=== PATIENT | male | born 1945 | race Caucasian/White ===

== ENCOUNTER 2023-01-11 10:53 | Day surgery (SDC) | payer OTHER, SELFPAY ==
[2023-01-02 12:19] VITALS: BMI 29.8
[2023-01-11] VITALS (7 sets, daily range): BP systolic 125–159; BP diastolic 73–96; PULSE 68–89; RESP 10–22; TEMP 36.1–36.8; O2SAT 90–98; BMI 29.8
[2023-01-11] MEDS: LACTATED RINGERS 1,000 ML 42 ML IV ×2 (11:37→18:22)
[2023-01-11 11:47] LABS: Hematocrit 43.5 % (41-53); Hemoglobin 15.5 g/dL (13.5-17.5); Mean Corpuscular HGB Conc 35.5 % (30-36); Mean Corpuscular Hemoglobin 33.5 PG (26-34); Mean Corpuscular Volume 94.3 fL (80-100); Platelet Count 207 X10^3/uL (150-400); Red Blood Cell Count 4.62 X10^6/uL (4.5-5.9); Red Cell Distribution Width 12.8 % (11.6-14.8); White Blood Cell Count 6.8 X10^3/uL (4.5-11.0)
[2023-01-11 11:58] LABS: BUN Creatinine Ratio 13.9 (6-22); Blood Urea Nitrogen 10 mg/dL (9-20); Carbon Dioxide 27 mmol/L (22-32); Chloride 96 mmol/L (98-107); Estimated Glomerular Filt Rate > 60 mL/min (>60); Glucose 97 mg/dL (80-110); HEMOLYSIS < 15 (0-50); Potassium 3.8 mmol/L (3.4-5.1); Sodium 133 mmol/L (137-145)
--- NOTE | 2023-01-11 12:44 | PM.PREOP ---
Pre-operative Note Interval Note History & Physical reviewed/Exam performed by Physician: Yes Changes to H&P: No
--- NOTE | 2023-01-11 14:05 | SUR.PREOP ---
Patient becoming agitated that he is still waiting to go to surgery. Apologized and explained reason for delay to patient. Called patient's , Priscilla, to notify that patient was delayed due to other circumstances. V/U. Patient comfortable and understanding of reason for delay.
[2023-01-11] MEDS: fentaNYL 100 MCG/2 ML INJ 50 MCG IV ×2 (15:02→15:12)
[2023-01-11] MEDS: MIDAZOLAM 2 MG/2 ML VIAL IV (15:03)
--- NOTE | 2023-01-11 15:24 | SUR.PREOP ---
Block start time [1500] . Monitoring initiated and maintained throughout procedure. Oxygen and medications given per anesthesiologist instructions. Patient remained stable throughout procedure, no adverse reactions noted. Block end time [1515].
[2023-01-11] MEDS: CEFAZOLIN 2 GM/100 ML PREMIX 100 ML IV (15:30)
--- NOTE | 2023-01-11 16:16 | SUR.OPER ---
Supine on padded OR bed, head on pillow, arms secured on padded arm boards at <90 degrees abduction, legs uncrossed, safety belt at thigh. Right leg in control of surgeon. Left leg taped down. Bump placed under patient's right hip and under right leg.
--- NOTE | 2023-01-11 16:18 | P.PCN_ITS ---
Peripheral Nerve Block Note Pre-Procedure Reason for block: Attending surgeon request/order for post-op pain management Pre-procedure checklist: Patient examined and chart reviewed, Risks, benefits, alternatives of block discussed, questions answered, Verification of anti- coagulation status, Site confirmed, Timeout performed and Standard ASA monitors applied Consent obtained from: Patient Procedure Date of procedure: 01/11/23 Start Time: 15:05 End Time: 15:15 Performed by: Carmen Curry Sedation - enter dose in comment field: IV Midazolam (mg) (2mg) and IV Fentanyl (mcg) (100 mcg) Location: Pre-Op Position: Lateral (Left) Laterality: Right Sterile Technique: Sterile barrier maintained, Sterile gloves, Mask, Sterile drapes, U/S probe cover and Chloraprep Skin Wheal: Lidocaine 1% mL: 1.5 Gauge: 25 Equipment Single injection - Needle brand, gauge, length: [employer] SONOPLEX STIM NEEDLE 21G X 100mm Medications Medications - enter concentration (%) & mL in comment field: Ropivacaine (0.5%. 20 ml total) Incremental aspiration prior to injection: Yes (aspirated every 5 ml) Ultrasound Reason for Ultrasound: U/S guidance used for needle placement and U/S used to visualize spread of anesthetic Image printed/saved/archived: Yes Limited exam reveals no abnormal findings: Yes Other: aspiration every 5 ml injected and easy injection throughout. Vital signs VS: - 01/11/23 11:24 Temperature 98.2 F Pulse Rate 89 Respiratory Rate 16 Blood Pressure 159/94 H Pulse Oximetry 98 Oxygen Delivery Method Room Air Oxygen Delivery Method Room Air Events Complications/Explanation for PNB under General anesthetic: Patient tolerated the procedure without complaints and no paresthesia noted. Postoperatively patient with no pain.
[2023-01-11] MEDS: BUPIVACAINE 0.5% (PF) 30 ML, EPINEPHrine 0.15 MG INJ (16:45)
--- NOTE | 2023-01-11 18:53 | DI.RAD.S_ITS ---
PROCEDURE: XR FOOT RT MIN 3V INDICATIONS: FOOT REPAIR RIGHT TECHNIQUE: 1 views of the foot were acquired. COMPARISON: None. FINDINGS: Fluoroscopic guidance utilized for a 5th metatarsal osteotomy and external pinning. IMPRESSION: Fluoroscopic guidance. Dictated by: Louie Bolivar M.D. on 01/11/2023 at 19:12 Approved by: Louie Bolivar M.D. on 01/11/2023 at 19:13
--- NOTE | 2023-01-11 19:35 | P.OP_ITS ---
Operative Date/Time/Diagnoses Date of procedure: 01/11/23 Time of procedure: 16:00 Pre-op diagnosis: Arthritis midfoot Pre ulcerative callus Idiopathic neuropathy Hammertoe right foot Bunionette right foot Post-op diagnosis: same Procedure & Clinicians Procedure: 1. Fusion tarsometatarsal joint 2 or more CPT code 05295 right 2. Jose Guadalupe bunionectomy separate site--CPT 44508, right + 59 (separate site) T5 3. Repair hammertoe 2nd toe right CPT 87324 T6 +59 (separate site) 4. Hammertoe repair 5th toe right CPT code 90416 T9 +59 (separate site) 5. 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 He is failed conservative treatments with orthotics shoe wear choices anti-inflammatories. He has pain and deformity and has a preulcerative callus around his medial cuneiform as well as a thick callus at the end of his 2nd hammertoe and a large prominent 5th metatarsal head that is painful. He has been indicated for deformity correction with midfoot fusions phalangeal osteotomies hammertoe corrections and 5th metatarsal head excision. We discussed autograft or allograft bone graft. The risks and benefits of the procedure have been discussed with the patient and given the opportunity to ask questions. The risks of surgery include but are not limited to infection, malunion, nonunion, persistence of pain, damage to nerves and blood vessels, posttraumatic arthritis, DVT, PE, cardiopulmonary complications and . The patient expressed a thorough understanding of the risks and benefits of surgery and has elected to proceed. Consent was signed in the office. 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 Rigid 2nd and 5th hammertoes. Prominent 5th metatarsal head. This was treated with 1st 2nd and 3rd tarsometatarsal fusions through separate plantar medial and dorsal incisions. A 5th metatarsal excision was excised through a separate incision. And the 5th and 2nd hammertoes were fixed through separate incisions. Jose Guadalupe osteotomy was added for residual hallux valgus interphalangeus through a separate incision the great toe. Closure Type: primary Specimen(s): none sent Prosthetic devices, grafts, tissues, transplants, or devices: Arthrex large right-sided plantar Lapidus plate nonlocking and locking screws. For the 1st tarsometatarsal fusion Second and 3rd tarsometatarsal fusions were fused using an Arthrex carla plate, medium with locking and nonlocking screws. 1 cc of DBM putty was used to help facilitate fusion Headless 2.5 Arthrex cannulated screw was used for the Jose Guadalupe osteotomy And a headless 2.5 cannulated screw was used for the 2nd hammertoe fixation And 062 K-wire was used to stabilize the 5th hammertoe and 5th metatarsal head excision. Applied: other (Splint) Estimated Blood Loss (mL): 100 Blood products transfused: none Tourniquet time (min): 120 Procedure in detail: Patient seen the preoperative area the site of surgery marked informed consent confirmed. The patient underwent a preoperative block with the anesthesia team for postoperative pain control. The patient was taken to the operating placed supine. The right lower extremity was prepped and draped in the standard sterile fashion. A formal time-out procedure was performed confirming the patient's side site of surgery administration of appropriate preoperative antibiotic. All were in agreement. Tarsometatarsal joint fusions 2 or more: Attention was turned to the right foot the Esmarch was exiting coordinated the tourniquet raised to 250 mmHg. Attention was turned to the foot the C-arm was brought in and the sites of the tarsometatarsal joints were marked out on the foot with the planned incisions. A plantar medial approach was taken just at the border of the 1st metatarsal this was taken down through the skin and subcutaneous tissue. The abductor was elevated off the plantar metatarsal cuneiform joint with care to expose and protect the tibialis anterior insertion. The 1st tarsometatarsal joint was exposed and then the cartilage was removed using combination of osteotomes TTS saw and the minimally invasive bur. A plantar and medial wedge was also removed to help correct deformity. Additional separate incision was made between the 2nd and 3rd metatarsals dorsally this was taken down through the skin subcutaneous tissue. This was kept well lateral to the neurovascular bundle. The 2nd and 3rd tarsometatarsal joints were exposed through suppressive dissection and again the cartilage on the joints was removed using the osteotomes curette and bur. Once this was completed joints were distracted and a 2.5 drill bit was used to prepare the 1st 2nd 3rd tarsometatarsal joints. The DBM putty was placed as well as some of the local bone graft taken from the wedge resections. The joints were then compressed and pinned. Care was taken to de rotate the 1st metatarsal aligning the sesamoids and compressed medially. The 1st tarsometatarsal joint was fixed with a Arthrex plantar Lapidus plate. Second and 3rd tarsometatarsal joints were fixed using a carla plate. This was checked on multiplanar intraoperative fluoroscopy with appropriate correction and compression. Plates were applied and the wounds were irrigated and closed with 2-0 Vicryl 4-0 Monocryl and 3-0 nylon suture. Care was taken to maintain a maximum skin bridge between these incisions. Attention was then turned distally Jose Guadalupe osteotomy: There is some residual hallux valgus interphalangeus at the great toe the minimally invasive bur from the Arthrex set was used to create a minimally invasive Jose Guadalupe osteotomy and this was pinned and then was fixed a 2.5 fully-threaded cannulated screw Attention was then turned to the 2nd hammertoe. Small open incision was made over the PIP joint and TTS saw used to remove the proximal phalanx condyles. The minimally invasive bur was used to remove the cartilage on the middle phalanx. A small stab incision was made at the level of the MTP joint to re least the capsule and help with some residual extension. Then the toe was aligned and pinned with a K-wire measured drilled and a 2.5 headless fully- threaded cannulated screw was placed to fix the 2nd hammertoe. Attention was then turned to the 5th toe and a small incision was made over the PIP joint of the 5th toe. The minimally invasive bur was used to prepare the joints and the 5th toe was pinned with a 062 K-wire this was stopped short of the metatarsal and a separate lateral incision was then made to address the metatarsal head excision. Fifth metatarsal head excision. Separate lateral incision over the lateral border of the foot and 5th metatarsal head was made down through the skin subcutaneous tissue. Capsule was incised. The metatarsal head was identified TTS saw was used to make a transverse osteotomy and the metatarsal head was excised from the tissue and capsule. The wound was irrigated then carefully the K-wire using to stabilize the 5th hammertoe was advanced into the shaft of the 5th metatarsal into the base of the 5th metatarsal fixing the 5th toe and metatarsal alignment. Once this was completed the wire was cut and a cap placed. The tourniquet had been released after the midfoot fusion. Hemostasis had been achieved. The toes were pink and well perfused. All wounds were irrigated and closed with 2-0 Vicryl 4-0 Monocryl 3-0 nylon. Was satisfied with foot alignment and closure. 20 cc of local anesthetic was infiltrated for additional anesthesia. Xeroform gauze and a bunion style dressing were applied with Jason wrap followed by Webril and a posterior and U splint. Patient was then awoken from anesthesia and taken to the recovery room in good condition. There no immediate complications in this procedure. All counts were correct. Complications: none Post-operative Condition: stable Disposition: PACU Plan for aftercare: Nonweightbearing right lower extremity. Elevate above heart level as much as possible for the 1st 2 weeks after surgery to minimize swelling and pain. Pain medications have been prescribed. Aspirin for DVT prophylaxis x6 weeks. Follow up in 2 weeks in clinic will be switched out of the splint into a cast for the next 4 weeks and then into a shoe or boot. K-wire will be maintained approximately 6 weeks and removed in clinic
== END 2023-01-11 20:22 | disposition home or self-care (01) ==
PROVIDERS: PCP Family Medicine; Referring Provider Orthopaedic Surgery Foot and Ankle Surgery; Visit Provider Orthopaedic Surgery Foot and Ankle Surgery
PROC: 0QBN0ZZ Excision of Right Metatarsal, Open Approach (ICD-10-PCS; CPT 28292; principal; 2023-01-11 12:30)
DX: M19.071 Primary osteoarthritis, right ankle and foot (principal); G60.9 Hereditary and idiopathic neuropathy, unspecified; M20.41 Other hammer toe(s) (acquired), right foot; L84 Corns and callosities; G89.18 Other acute postprocedural pain; M21.621 Bunionette of right foot
CPT/HCPCS: 28730; 28298; 28111; 28285 ×2; 64450; 73630; 76000; 80048; 85027; C1713; J0171; J0690; J1100; J2250; J2405; J2704; J3010